=== PATIENT | male | born 1985 | race Caucasian/White ===

== ENCOUNTER 2024-02-28 14:44 | Emergency (ER) | payer SELFPAY ==
[~2024-02-28] VITALS: Ht 172.7 cm; Wt 75.0 kg
[2024-02-28 14:56] VITALS: BP 108/62; PULSE 78; RESP 18; TEMP 97.7; O2SAT 98
[2024-02-28] MEDS: ACETAMINOPHEN 325MG TABLET PO ONE (17:39)
[2024-02-28] MEDS: TETANUS, DIPHTHERIA, PERTUSSIS VAC/PF 0.5ML (>10YR OLD) IM ONE (18:08)
[2024-02-28] MEDS: LIDOCAINE HCL/PF 1% 10 MG/ML 5ML VIAL INFIL ONE (18:11)
[2024-02-28] MEDS: BACITRACIN ZINC OINT UDPKT TOP ONE (18:11)
[2024-02-28] MEDS ORDERED: IBUP-2029 PO (18:15)
== END 2024-02-28 18:36 | disposition home or self-care (01) ==
LOC: ER 14:44
DX: S61.411A Laceration without foreign body of right hand, initial encounter (principal); X58.XXXA Exposure to other specified factors, initial encounter; Y93.89 Activity, other specified; Y92.89 Other specified places as the place of occurrence of the external cause; Y99.8 Other external cause status
CPT/HCPCS: 73140; 90715; 12001; 90471; 99283; J3490; Z7610 ×3